=== PATIENT | female | born 1990 | race Caucasian/White ===

== ENCOUNTER → 2020-11-08 | Day surgery (SDC) | payer OTHER ==
[~2020-11-08] MED LIST: COLACE 100MG C100 MG PO; IBUPROFEN600 MG PO; PRENATAL VITAM1 EAC5 PO
[2020-11-08 08:13] LABS: HEMOGLOBIN 13.6 gm/dl (12.3-15.3); RED BLOOD COUNT 4.46 M/UL (4.00-5.10); WHITE BLOOD COUNT 4.3 K/UL (4.5-11.0)
== END | disposition home or self-care (01) ==
LOC: OR 07:20
PROVIDERS: Obstetrics & Gynecology
PROC: 10D17ZZ Extraction of Products of Conception, Retained, Via Natural or Artificial Opening (ICD-10-PCS; principal; 2020-11-08 08:00)
DX: O02.1 Missed abortion (principal); I10 Essential (primary) hypertension; G43.909 Migraine, unspecified, not intractable, without status migrainosus; Z20.822 Contact with and (suspected) exposure to COVID-19; Z79.899 Other long term (current) drug therapy; Z88.2 Allergy status to sulfonamides; Z88.8 Allergy status to other drugs, medicaments and biological substances
CPT/HCPCS: 36415; 81001; 85025; 87635; J1100; J1885; J2001; J2250; J2405; J2704; J2795; J3010; J7120

== ENCOUNTER 2021-08-06 15:37 | Emergency (ER) | payer OTHER | END 2021-08-06 16:55 | disposition left against medical advice (07) | LOC: ER1 15:37 | DX: Z53.21 Procedure and treatment not carried out due to patient leaving prior to being seen by health care provider (principal) ==

== ENCOUNTER 2021-12-27 06:27 | Inpatient (IN) | payer OTHER ==
[~2021-12-27] VITALS: Ht 162.6 cm; Wt 82.6 kg
[2021-12-27 07:24] LABS: HEMOGLOBIN 10.2 gm/dl (12.3-15.3); RED BLOOD COUNT 4.08 M/UL (4.00-5.10); WHITE BLOOD COUNT 9.5 K/UL (4.5-11.0)
[2021-12-27] MEDS ORDERED: LANSOPRAZOLE15 MG PO (07:33)
[2021-12-27] MEDS ORDERED: FENUGREEK500 MG PO (07:34)
[2021-12-27] MEDS ORDERED: FLAXSEED1000 MG PO (07:34)
[2021-12-27 12:29] LABS: HEMOGLOBIN 6.8 gm/dl (12.3-15.3); RED BLOOD COUNT 2.59 M/UL (4.00-5.10); WHITE BLOOD COUNT 16.7 K/UL (4.5-11.0)
[2021-12-27 13:29] LABS: RED BLOOD COUNT 3.54 M/UL (4.00-5.10); WHITE BLOOD COUNT 21.2 K/UL (4.5-11.0)
[2021-12-27 13:54] LABS: BUN/CREATININE RATIO 21 (0-10)
[2021-12-27 19:51] LABS: HEMOGLOBIN 9.1 gm/dl (12.3-15.3); RED BLOOD COUNT 3.22 M/UL (4.00-5.10); WHITE BLOOD COUNT 21.7 K/UL (4.5-11.0)
[2021-12-27 20:08] LABS: BUN/CREATININE RATIO 14 (0-10)
[2021-12-28 04:45] LABS: RED BLOOD COUNT 2.42 M/UL (4.00-5.10); WHITE BLOOD COUNT 11.8 K/UL (4.5-11.0)
[2021-12-28 04:47] LABS: HEMOGLOBIN 6.9 gm/dl (12.3-15.3)
[2021-12-28 04:58] LABS: BUN/CREATININE RATIO 11 (0-10)
[2021-12-28 12:15] LABS: HEMOGLOBIN 8.6 gm/dl (12.3-15.3)
[2021-12-29 10:39] LABS: HEMOGLOBIN 7.8 gm/dl (12.3-15.3)
[2021-12-29] MEDS ORDERED: IBUPROFEN800 MG PO (13:06)
[2021-12-29] MEDS ORDERED: HEMOCYTE324 MG PO (13:06)
[2021-12-29] MEDS ORDERED: HYDROCODON-ACE1 EAC2 PO (13:06)
[2021-12-29] MEDS ORDERED: COLACE100 MG PO (13:06)
[2021-12-29] MEDS ORDERED: AUGMENTIN 500-500 MG PO (13:19)
== END 2021-12-29 17:01 | disposition home or self-care (01) | DRG 784 ==
LOC: OB 06:27
PROVIDERS: Obstetrics & Gynecology; ADMIT Obstetrics & Gynecology
PROC: 4A1HXCZ Monitoring of Products of Conception, Cardiac Rate, External Approach (ICD-10-PCS; 2021-12-27)
PROC: 30233N1 Transfusion of Nonautologous Red Blood Cells into Peripheral Vein, Percutaneous Approach (ICD-10-PCS; 2021-12-27)
PROC: 0UT90ZL Resection of Uterus, Supracervical, Open Approach (ICD-10-PCS; principal; 2021-12-27 07:30)
PROC: 10D00Z1 Extraction of Products of Conception, Low, Open Approach (ICD-10-PCS; principal; 2021-12-27 07:30)
PROC: 0UT70ZZ Resection of Bilateral Fallopian Tubes, Open Approach (ICD-10-PCS; principal; 2021-12-27 07:30)
DX: O34.211 Maternal care for low transverse scar from previous cesarean delivery (principal); D62 Acute posthemorrhagic anemia; O72.1 Other immediate postpartum hemorrhage; Z20.822 Contact with and (suspected) exposure to COVID-19; Z3A.39 39 weeks gestation of pregnancy; Z37.0 Single live birth; Z88.5 Allergy status to narcotic agent; Z88.2 Allergy status to sulfonamides; Z88.8 Allergy status to other drugs, medicaments and biological substances; Z82.5 Family history of asthma and other chronic lower respiratory diseases; Z83.3 Family history of diabetes mellitus; Z28.310 Unvaccinated for COVID-19; Z87.440 Personal history of urinary (tract) infections; Z81.8 Family history of other mental and behavioral disorders; Z80.9 Family history of malignant neoplasm, unspecified; O90.81 Anemia of the puerperium; I95.9 Hypotension, unspecified; O69.1XX0 Labor and delivery complicated by cord around neck, with compression, not applicable or unspecified
CPT/HCPCS: 36415; 36430; 36600; 74018; 80048; 81001; 82803; 82962; 83880; 85014; 85018; 85025; 85610; 85730; 86850; 86900; 86901; 86920; 90715; 93005; 96372; C9113; J0330; J0690; J1885; J1940; J2210; J2274; J2370; J2405; J2550; J2590; J2704; J2710; J2795; J3010; J7030; J7040; J7120; P9016; P9035; P9045